=== PATIENT | male | born 1980 | race African-American/Black ===

== ENCOUNTER → 2019-04-06 | Outpatient (CLI) | payer BC ==
--- NOTE | 2019-04-06 14:53 | CARD ---
MR#: [id number] Date of Study: 04/06/2019 Ordering Physician: LYNDSEY CARABALLO, Referring Physician: LYNDSEY CARABALLO, Tech: Joan Collado [facility] APPROVED REPORT INDICATION Chest Pain Reason : Patient complained of shortness of breath PROCEDURE The patient underwent an Exercise Stress Test using the [employer] Protocol. Blood pressure, heart rate, a nd EKG were monitored. An Echocardiogram was performed by civilian technician in four stages in quad fashion. At peak stress four se lected images were obtained and placed side by side with resting images for comparison. STRESS ECHO FINDINGS The resting Echocardiogram showed normal left ventricular systolic contractility with an estimated Ej ection Fraction of about 60 %. The Resting Echocardiogram showed normal augmentation of myocardial wall segments using a 16 segment model. The Stress Echocardiogram showed normal augmentation of myocardial wall segments using a 16 segment m [place]. The Stress Echocardiogram left ventricular systolic contractility has an estimated Ejection Fraction of about 65%. Test Type: Exercise Stress Nurse/Tech: michael rodriguez RN Test Indications: chest pain, syncope Cardiac History and Allergies: See [employer] EMR NKDA Medications: see EMR Resting ECG: SR Resting Heart Rate: 78 bpm Resting Blood Pressure: 106/59mmHg Pretest Chest Pain: None Nurse/Tech Notes Lungs CTA, S1S2 Consent: The procedure was explained to the patient in lay terms. Informed consent was witnessed. Lionel eout was entered into [employer]. History and Stress Test performed by Cynthia Rodriguez RN Stress Symptoms Dyspnea. pt unable to reach target heart rate before discontinuing exam POST EXERCISE Reason for Termination: Patient request Target HR: 182 Max HR: 168 bpm Exercise duration: 12 min:sec, Stage Max Blood Pressure: 155/60mmHg Blood Pressure response to exercise: Normal blood pressure response during stress. Heart Rate response to exercise: normal response Chest Pain: No. Arrhythmia: No. ST Change: No. INTERPRETATION Stress EKG Conclusion: Baseline EKG showed sinus rhythm. No ischemic changes at peak stress. No arr hythmias. Preliminary Notification Critical Value: No <Conclusion> Treadmill exercise stress echocardiogram did not show any evidence of ischemia or infarct. Normal left ventricle systolic function with ejection fraction estimated at 60%. Patient had good activity tolerance. Low risk for cardiac events. Signed by : Nura Oconnor, Electronically Approved : 04/06/2019 14:52:43
== END | disposition home or self-care (01) ==
LOC: ECHO 12:22
PROVIDERS: ATTEND Internal Medicine Cardiovascular Disease
DX: R06.02 Shortness of breath (principal); R07.9 Chest pain, unspecified
CPT/HCPCS: 93017; 93350